=== PATIENT | female | born 1990 | race Caucasian/White ===

== ENCOUNTER 2018-05-20 00:07 | Emergency (ER) | payer SELFPAY ==
[2018-05-20 00:19] VITALS: BP 132/96; TEMP 98; BMI 32.2
[2018-05-20] MEDS: ALBUTEROL SO4 2.5/IPRATROPIUM 0.5 INH SOL 3 ML VIAL.NEB. NEB SCH ×4 (00:20→01:03)
--- NOTE | 2018-05-20 00:24 | PDOC ---
History of Present Illness - History of Present Illness Initial Comments: 05/20/18 00:21 Ms. Barnes is a 27 yo female w/ pmh of asthma. Patient reports she was doing renovation on a house (including sanding, painting, etc.) without a mask when she started to cough. Patient did not have her rescue inhaler and elected to come to ER when coughing continued. Patient denies any other complaints at this time. The patient denies chest pain, headache and dizziness. Denies fever, chills, nausea, vomit, diarrhea and constipation. Denies dysuria, frequency, urgency and hematuria. <Gil Galicia - Last Filed: 05/20/18 01:14> <Meenakshi Goldsmith - Last Filed: 05/20/18 01:45> - General Chief Complaint: Asthma Stated Complaint: ASTHMA ATTACK Time Seen by Provider: 05/20/18 00:21 Past History - Past Medical History Asthma: Yes COPD: No - Suicide/Smoking/Psychosocial Hx Smoking History: Never smoked <Gil Galicia - Last Filed: 05/20/18 01:14> <Meenakshi Goldsmith - Last Filed: 05/20/18 01:45> - Past Medical History Home Medications: Ambulatory Orders Albuterol Sulfate Inhaler - [Ventolin Hfa Inhaler -] 1 - 2 inh PO Q4H #1 inhaler 05/20/18 Review of Systems - Review of Systems Comments:: 05/20/18 00:23 GENERAL/CONSTITUTIONAL: No fever or chills. No weakness. HEAD, EYES, EARS, NOSE AND THROAT: No change in vision. No ear pain or discharge. No sore throat. CARDIOVASCULAR: No chest pain RESPIRATORY: +Cough/SOB as described. GASTROINTESTINAL: No nausea, vomiting, diarrhea or constipation. GENITOURINARY: No dysuria, frequency, or change in urination. MUSCULOSKELETAL: No joint or muscle swelling or pain. No neck or back pain. SKIN: No rash NEUROLOGIC: No headache, vertigo, loss of consciousness, or change in strength/ sensation. ENDOCRINE: No increased thirst. No abnormal weight change HEMATOLOGIC/LYMPHATIC: No anemia, easy bleeding, or history of blood clots. ALLERGIC/IMMUNOLOGIC: No hives or skin allergy. <Gil Galicia - Last Filed: 05/20/18 01:14> *Physical Exam - Vital Signs Last Vital Signs Temp Pulse Resp BP Pulse Ox 98.0 F 128 H 24 H 132/96 100 05/20/18 00:18 05/20/18 00:18 05/20/18 00:18 05/20/18 00:18 05/20/18 00:18 - Physical Exam Comments: 05/20/18 00:23 GENERAL: Awake, alert, and fully oriented, in no acute distress HEAD: No signs of trauma, normocephalic, atraumatic EYES: PERRLA, EOMI, sclera anicteric, conjunctiva clear ENT: Auricles normal inspection, hearing grossly normal, nares patent, oropharynx clear without exudates. Moist mucosa NECK: Normal ROM, supple, no lymphadenopathy, JVD, or masses LUNGS: +Diffuse wheezes bilaterally upon exam. HEART: Regular rate and rhythm, normal S1 and S2, no murmurs, rubs or gallops, peripheral pulses normal and equal bilaterally. ABDOMEN: Soft, nontender, normoactive bowel sounds. No guarding, no rebound. No masses EXTREMITIES: Normal inspection, Normal range of motion, no edema. No clubbing or cyanosis. NEUROLOGICAL: Cranial nerves II through XII grossly intact. Normal speech, normal gait, no focal sensorimotor deficits SKIN: Warm, Dry, normal turgor, no rashes or lesions noted. <Gil Galicia - Last Filed: 05/20/18 01:14> - Vital Signs Last Vital Signs Temp Pulse Resp BP Pulse Ox 98.0 F 128 H 24 H 132/96 100 05/20/18 00:18 05/20/18 00:18 05/20/18 00:18 05/20/18 00:18 05/20/18 00:18 <Meenakshi Goldsmith - Last Filed: 05/20/18 01:45> Medical Decision Making - Medical Decision Making 05/20/18 01:14 Ms. Barnes is a 27 yo female w/ pmh as described who presents for evaluation of symptoms c/w asthma exacerbation. Patient given duonebs and oral steroids with reduction in symptoms. Ventolin inhaler sent to patient's pharmacy. No concern for further acute problem at this time. Discharging to home. <Gil Galicia - Last Filed: 05/20/18 01:14> *DC/Admit/Observation/Transfer <Gil Galicia - Last Filed: 05/20/18 01:14> <GoldsmithMeenakshi uribe - Last Filed: 05/20/18 01:45> Diagnosis at time of Disposition: Asthma exacerbation Qualifiers: Asthma severity: unspecified severity Asthma persistence: unspecified Qualified Code(s): J45.901 - Unspecified asthma with (acute) exacerbation - Discharge Dispostion Disposition: HOME - Prescriptions Prescriptions: Albuterol Sulfate Inhaler - [Ventolin Hfa Inhaler -] 1 - 2 inh PO Q4H #1 inhaler - Patient Instructions Printed Discharge Instructions: Asthma -- Adult Additional Instructions: You were evaluated today in the ER for your asthma. Your symptoms improved following breathing treatments and steroids. Please make sure to keep a rescue inhaler on you at all times. We have sent a prescription to your pharmacy for an extra rescue inhaler that you may fill. Please follow-up with primary care provider next week for further evaluation. Return to ER if any return of shortness of breath, fever, chills, or other concerning symptoms. - Post Discharge Activity Forms/Work/School Notes: Back to Work
--- NOTE | 2018-05-20 00:49 | PDOC ---
Attending Attestation - HPI HPI: 05/20/18 01:25 The patient is a 27-year-old female with a past medical history significant for asthma presents to the emergency department with coughing. The patient reports she was renovating a house, doing painting and sanding, without a mask when she had an onset of coughs. The patient states she didnt have her inhaler with her and decided to be evaluated. Denies fever, chills, chest pain, headache, nausea , or vomiting - Physicial Exam PE: 05/20/18 01:25 GENERAL: afebril. Awake, alert, and fully oriented, in no acute distress HEAD: No signs of trauma EYES: PERRLA, EOMI, sclera anicteric, Right eye injected. ENT: Auricles normal inspection, hearing grossly normal, nares patent, oropharynx clear without exudates. Moist mucosa NECK: Normal ROM, supple, no lymphadenopathy, JVD, or masses LUNGS: Breath sounds equal, clear to auscultation bilaterally. No wheezes, and no crackles HEART: +Bradycardia to the 60s, on albuterol. Regular rate and rhythm, normal S1 and S2, no murmurs, rubs or gallops ABDOMEN: Soft, nontender. EXTREMITIES: no pitting edema. Normal range of motion, no edema. NEUROLOGICAL: Cranial nerves II through XII grossly intact. Normal speech, normal gait SKIN: Warm, Dry, normal turgor, no rashes or lesions noted. - Medical Decision Making 05/20/18 01:25 Documentation prepared by Hui Conklin, acting as medical program specialist for Meenakshi Goldsmith MD. <Hui Conklin - Last Filed: 05/20/18 01:25> - Resident Resident Name: Gil Galicia - ED Attending Attestation I have performed the following: I have examined & evaluated the patient, The case was reviewed & discussed with the resident, I agree w/resident's findings & plan - Medical Decision Making 05/20/18 02:06 Pt has no chest pain at this time. Feeling better. EKG shows flipped/flat Twaves throughout, likely secondary to her asthma exacerbation. Pt improved. SHe will be discharged home. No cardiac enzymes or labs will be sent at this time. <Meenakshi Goldsmith - Last Filed: 05/20/18 02:07>
[2018-05-20] MEDS ORDERED: DEXAMETHASONE LIQUID 0.5 MG/5 ML 240 ML BULK BOTTLE PO ONE (00:50)
[2018-05-20] MEDS ORDERED: DEXAMETHASONE SOD PHOSPHATE 10 MG/1 ML VIAL ONE (01:04)
[2018-05-20 01:56] VITALS: PULSE 84
--- NOTE | 2018-05-21 10:04 | EKG ---
Test Reason : Blood Pressure : / mmHG Vent. Rate : 087 BPM Atrial Rate : 087 BPM P-R Int : 138 ms QRS Dur : 096 ms QT Int : 396 ms P-R-T Axes : 030 016 -24 degrees QTc Int : 476 ms NORMAL SINUS RHYTHM T WAVE ABNORMALITY, CONSIDER ANTERIOR ISCHEMIA PROLONGED QT ABNORMAL ECG NO PREVIOUS ECGS AVAILABLE Confirmed by RYNE SCHRADER MD ([id number]) on 05/21/2018 10:04:31 AM Referred By: Confirmed By:RYNE SCHRADER MD
== END 2018-05-20 01:56 | disposition home or self-care (01) ==
LOC: JER 00:07
PROC: 3E0F7GC Introduction of Other Therapeutic Substance into Respiratory Tract, Via Natural or Artificial Opening (ICD-10-PCS; principal; 2018-05-20)
DX: J45.901 Unspecified asthma with (acute) exacerbation (principal)
CPT/HCPCS: 93005; 93010; 99282-25